=== PATIENT | female | born 1980 | race Caucasian/White ===

== ENCOUNTER 2023-01-02 01:21 | Emergency (ER) | payer MEDICAID ==
[~2023-01-02] VITALS: Ht 157.5 cm; Wt 99.8 kg
[~2023-01-02 01:21] MED LIST: CEPH-548 PO; CYCL10TA24 PO
[2023-01-02 01:56] VITALS: BP_SYST 120
[2023-01-02] MEDS ORDERED: MORPHINE 4 MG INJ. 4 MG/ML VIAL IM ONE (02:45)
[2023-01-02 03:08] VITALS: BP_SYST 165
== END 2023-01-02 03:08 | disposition home or self-care (01) ==
LOC: SED 01:21
DX: M79.605 Pain in left leg (principal); M79.606 Pain in leg, unspecified; R10.9 Unspecified abdominal pain; M79.7 Fibromyalgia; Z88.0 Allergy status to penicillin; Z79.899 Other long term (current) drug therapy
CPT/HCPCS: 99283; 96372; J2270